=== PATIENT | male | born 1980 | race African-American/Black ===

== ENCOUNTER 2020-10-16 15:07 | Emergency (ER) | payer SELFPAY ==
[2020-10-16] MEDS ORDERED: TETRACAINE HCL 0.5% OPH SOLN 4 ML OU ONE ×2 (16:29→23:41)
--- NOTE | 2020-10-16 16:33 | ER Document Report ---
ED Medical Screen (RME) - General Chief Complaint: Eye Problem Stated Complaint: RIGHT EYE REDNESS,SWELLING Time Seen by Provider: 10/16/20 16:25 - HPI Notes: 10/16/20 16:29 40-year-old male presents to the emergency room today for complaints of right eye swelling with exudates for the last week as well as right-sided headache. Patient states that his headache is 5 out of 5 as well as his eye pain. Reports photophobia. tried otc [facility] drops without relief. Does not wear glasses or contacts. Patient states he is unable to open his eye due to the exudate. Reports sharp shooting pain to his right temporal area. Denies any trauma or or neuro changes. Has not tried any [id number] medications. Worse with time, nothing makes better. Has not been seen by an diesel engine operator I have greeted and performed a rapid initial assessment of this patient. A comprehensive ED assessment and evaluation of the patient, analysis of test results and completion of the medical decision making process will be conducted by additional ED providers. PHYSICAL EXAMINATION: GENERAL: Well-appearing, well-nourished and in mild distress. HEAD: Atraumatic, normocephalic. EYES: I had to be forced open with a glove, right eye sclera injected, with exudates around conjunctivae. Patient could not tolerate either being open due to light in room. pupils +2 bilaterally CV: s1, s2 regular LUNGS: No respiratory distress NEUROLOGICAL: Normal speech, normal gait. SKIN: Warm, Dry, normal turgor, no rashes or lesions noted. The patient was evaluated during a global COVID-19 pandemic and that diagnosis was suspected/considered upon their initial presentation. Their evaluation, treatment and testing was consistent with current guidelines for patients who present with complaints or symptoms and may be related to COVID-19. 10/16/20 16:30 - Related Data Allergies/Adverse Reactions: No Known Allergies Allergy (Unverified 10/16/20 16:27) Physical Exam - Vital signs Vitals: Temp Pulse Resp BP Pulse Ox 98.2 F 55 L 16 151/104 H 99 10/16/20 15:38 10/16/20 15:38 10/16/20 15:38 10/16/20 15:38 10/16/20 15:38 Course - Vital Signs Vital signs: Temp Pulse Resp BP Pulse Ox 98.2 F 55 L 16 151/104 H 99 10/16/20 15:38 10/16/20 15:38 10/16/20 15:38 10/16/20 15:38 10/16/20 15:38
--- NOTE | 2020-10-17 00:31 | ER Document Report ---
ED General - General Chief Complaint: Eye Pain Stated Complaint: RIGHT EYE REDNESS,SWELLING Time Seen by Provider: 10/16/20 16:25 Mode of Arrival: Ambulatory Information source: Patient Notes: Patient presents to the ER for evaluation of right eye drainage with a foreign body sensation that he noticed upon waking 5 days ago. The patient states he has had some itching in his eyes previously and suspects that he scratched his eye while rubbing. He complains of some blurred vision and shooting pain laterally from the eye. He has used some OTC lubricating drops but he continues to get worse each day. The patient states he gets a large amount of purulent discharge that tends to caity his eye closed. Nursing notes reviewed and past medical, social, and family histories reviewed and validated. - Related Data Allergies/Adverse Reactions: No Known Allergies Allergy (Unverified 10/16/20 16:27) Past Medical History - General Information source: Patient - Social History Smoking Status: Current Some Day Smoker Cigarette use (# per day): Yes - Half pack per day Chew tobacco use (# tins/day): No Frequency of alcohol use: None Drug Abuse: Marijuana Lives with: Family Family History: Reviewed & Not Pertinent Patient has suicidal ideation: No Patient has homicidal ideation: No - Past Medical History Cardiac Medical History: Reports: None Pulmonary Medical History: Reports: None EENT Medical History: Reports: None Neurological Medical History: Reports: None Endocrine Medical History: Reports: None Renal/ Medical History: Reports: None Malignancy Medical History: Reports None GI Medical History: Reports: None Musculoskeletal Medical History: Reports None Skin Medical History: Reports None Psychiatric Medical History: Reports: None Traumatic Medical History: Reports: None Infectious Medical History: Reports: None Past Surgical History: Reports: None - Immunizations Immunizations up to date: Yes Hx Diphtheria, Pertussis, Tetanus Vaccination: Yes Review of Systems - Review of Systems Notes: Constitutional: Negative for fever. HENT: Negative for sore throat. Eyes: Positive for left eye pain. Positive for intermittent blurred vision. Cardiovascular: Negative for chest pain. Respiratory: Negative for shortness of breath. Gastrointestinal: Negative for abdominal pain, vomiting or diarrhea. Genitourinary: Negative for dysuria. Musculoskeletal: Negative for back pain. Skin: Negative for rash. Neurological: Negative for headaches, weakness or numbness. 10 point ROS negative except as marked above and in HPI. Physical Exam - Vital signs Vitals: Temp Pulse Resp BP Pulse Ox 98.2 F 55 L 16 151/104 H 99 10/16/20 15:38 10/16/20 15:38 10/16/20 15:38 10/16/20 15:38 10/16/20 15:38 - Notes Notes: CONSTITUTIONAL: Well appearing. No acute distress. SKIN: Warm, dry, and intact without rash EYES: Extraocular movements are grossly intact. PERRLA. Conjunctiva to the right eye is injected. There is a large amount of purulent drainage noted. Upon fluorescein exam, there is a small corneal abrasion to the 12 o'clock of the right cornea. HENT: Normocephalic, atraumatic, moist mucus membranes NECK: No obvious swelling, normal range of motion PULMONARY: Normal chest rise and fall. No respiratory distress or stridor CARDIOVASCULAR: Regular rate. Distal extremities are warm and well perfused. ABDOMINAL: Soft, nontender NEUROLOGIC: Normal speech, moves all extremities. MUSCULOSKELETAL: No gross deformities, atraumatic PSYCHIATRIC: Normal mood and affect - HEENT Visual acuity- Right eye: 20/40 Visual acuity- Left eye: 20/20 Visual acuity- Both eyes: 20/20 Corrective lenses worn: No Course - Vital Signs Vital signs: Temp Pulse Resp BP Pulse Ox 98.6 F 75 18 139/93 H 100 10/16/20 20:10 10/16/20 20:10 10/16/20 20:10 10/16/20 20:10 10/16/20 20:10 - Laboratory Results Critical Laboratory Results Reviewed: No Critical Results - Radiology Results Critical Radiology Results Reviewed: No Critical Results Discharge - Discharge Clinical Impression: Acute conjunctivitis Qualifiers: Acute conjunctivitis type: unspecified Laterality: right Qualified Code(s): H10.31 - Unspecified acute conjunctivitis, right eye Corneal abrasion Qualifiers: Encounter type: initial encounter Laterality: right Qualified Code(s): S05.01XA - Injury of conjunctiva and corneal abrasion without foreign body, right eye, initial encounter Condition: Stable Disposition: HOME, SELF-CARE Instructions: Conjunctivitis ([facility]), Corneal Abrasion ([facility]) Additional Instructions: Follow-up with the baggagemaster as we have discussed. Call tomorrow morning at 830 for an appointment. Prescriptions: Tobramycin Sulfate [Tobrex 0.3% Oph Soln 5 ml] 3 drop OP Q4H #1 bottle Referrals: ELMER MONTENEGRO DO [ACTIVE STAFF] - Follow up as needed
[2020-10-17 00:59] VITALS: BP 175/124
== END 2020-10-17 00:58 | disposition home or self-care (01) ==
LOC: ER 15:07
DX: H10.31 Unspecified acute conjunctivitis, right eye (principal); S05.01XA Injury of conjunctiva and corneal abrasion without foreign body, right eye, initial encounter; X58.XXXA Exposure to other specified factors, initial encounter; H57.12 Ocular pain, left eye; F17.210 Nicotine dependence, cigarettes, uncomplicated; F12.10 Cannabis abuse, uncomplicated
CPT/HCPCS: 99283; J3490 ×2